=== PATIENT | female | born 1970 | race Caucasian/White ===

== ENCOUNTER 2020-05-26 21:21 | Emergency (ER) | payer MEDICAID ==
[~2020-05-26] VITALS: Ht 157.5 cm; Wt 83.0 kg
[2020-05-27 00:05] LABS: COLOR URINE YELLOW (YELLOW); KETONES URINE 1+ (NEGATIVE); LEUKOCYTE ESTERASE URINE NEGATIVE (NEGATIVE); NITRITE URINE NEGATIVE (NEGATIVE); OCCULT BLOOD URINE NEGATIVE (NEGATIVE); PH URINE 5.5 (4.5-8.0); PROTEIN URINE NEGATIVE (NEGATIVE); SPECIFIC GRAVITY URINE 1.021 (1.005-1.030)
[2020-05-27 00:08] LABS: CLARITY URINE CLEAR (CLEAR)
[2020-05-27] MEDS ORDERED: ACETAMINOPHEN WITH CODEINE 300/30MG TABLET PO ONE (00:30)
[2020-05-27] MEDS ORDERED: IBUPROFEN 600MG TABLET PO ONE (00:30)
[2020-05-27 00:44] VITALS: BP 138/79
== END 2020-05-27 00:45 | disposition home or self-care (01) ==
LOC: ER 21:21
DX: M54.5 Low back pain (principal)
CPT/HCPCS: 81003; 81025; 99283